=== PATIENT | male | born 1945 | race Caucasian/White ===

== ENCOUNTER → 2017-08-23 | Outpatient (CLI) | payer MEDICARE ==
[~2017-08-23] MED LIST: ALDACTONE25 MG PO; CELEBREX 200 M200 M1 PO; CENTRUM SILVER1 EAC4 PO; FISH OIL 1,001000 M2 PO; FOLIC ACID1 MG PO; LACTULOSE20 GM/30 M PO; LASIX 40 MG TAB40 M2 PO; LASIX 80 MG TAB80 MG PO; LIPITOR; LIPITOR 20 MG T20 M1 PO; MEDROL4 MG PO; PREDNISONE 20 M20 M1 PO; PREDNISONE 20 M20 MG PO; PROBENECID500 MG PO; PROTONIX40 M4 PO; VANCOMYCIN1.25 GM/21 IV; VITAMIN B-1100 M1 PO; VITAMIN D1000 UNI1 PO; XIFAXAN550 M1 PO; XIFAXAN550 MG PO
[2017-08-23 12:08] LABS: ALBUMIN 3.9 g/dL (3.4-5.0); CALCIUM 9.6 mg/dL (8.5-10.1); CREATININE 1.7 mg/dL (0.6-1.3); PHOSPHORUS* 3.5 mg/dL (2.5-4.9); POTASSIUM 5.4 mmol/L (3.5-5.1)
[2017-08-23 21:06] LABS: eGFR IF AFRICAN AMERICAN 50 (>59)
[2017-08-24 11:11] LABS: PARATHYROID HORMONE 24 pg/mL (15-65)
== END ==
LOC: M.LAB 11:16
PROVIDERS: Internal Medicine Nephrology
DX: N18.3 Chronic kidney disease, stage 3 (moderate) (principal); K70.10 Alcoholic hepatitis without ascites

== ENCOUNTER → 2018-01-03 | Outpatient (CLI) | payer MEDICARE ==
[2018-01-03 12:07] LABS: ALBUMIN 3.9 g/dL (3.4-5.0); CALCIUM 10.3 mg/dL (8.5-10.1); CREATININE 1.6 mg/dL (0.6-1.3); PHOSPHORUS* 2.9 mg/dL (2.5-4.9); POTASSIUM 5.6 mmol/L (3.5-5.1)
[2018-01-03 22:08] LABS: eGFR IF AFRICAN AMERICAN 51 (>59)
[2018-01-04 15:11] LABS: PARATHYROID HORMONE 18 pg/mL (15-65)
== END ==
LOC: M.LAB 11:20
PROVIDERS: Internal Medicine Nephrology
DX: N18.3 Chronic kidney disease, stage 3 (moderate) (principal)

== ENCOUNTER → 2018-01-10 | Outpatient (CLI) | payer MEDICARE ==
[2018-01-10 11:51] LABS: CALCIUM 9.9 mg/dL (8.5-10.1); CREATININE 1.5 mg/dL (0.6-1.3); POTASSIUM 4.7 mmol/L (3.5-5.1)
== END ==
LOC: M.LAB 11:28
PROVIDERS: Internal Medicine Nephrology
DX: N18.3 Chronic kidney disease, stage 3 (moderate) (principal)

== ENCOUNTER → 2018-02-23 | Outpatient (CLI) | payer MEDICARE | LOC: M.ULTRA 10:08 | DX: K70.10 Alcoholic hepatitis without ascites (principal); K70.30 Alcoholic cirrhosis of liver without ascites; N18.3 Chronic kidney disease, stage 3 (moderate) ==

== ENCOUNTER → 2018-03-15 | Outpatient (CLI) | payer MEDICARE ==
[2018-03-15 10:32] LABS: ABSOLUTE BASOPHILS 0.1 thou/uL (0.0-0.2); ABSOLUTE EOSINOPHILS 0.4 thou/uL (0.0-0.7); ABSOLUTE LYMPHOCYTES 1.4 thou/uL (0.8-5.3); ABSOLUTE MONOCYTES 0.7 thou/uL (0.0-1.2); ABSOLUTE NEUTROPHILS 3.7 thou/uL (1.6-8.1); BASOPHILS 0.9 %; EOSINOPHILS 6.4 %; HEMATOCRIT 42.6 % (42.0-52.0); HEMOGLOBIN 14.2 gm/dL (14.0-18.0); LYMPHOCYTES 22.2 %; MCH 32.6 pg (26.0-34.0); MCHC 33.3 g/dL (28.0-37.0); MCV 97.9 fL (80.0-100.0); MONOCYTES 11.7 %; NUCLEATED RBCS 0 /100WBC; PLATELET COUNT* 163 thou/uL (150-400); POLYS 58.8 %; RBC 4.35 mil/uL (4.50-6.00); RDW-CV 13.7 % (10.5-14.5); WBC 6.2 thou/uL (4.0-11.0)
[2018-03-15 10:39] LABS: PROTIME 10.7 Seconds (9.20-11.50)
[2018-03-15 10:44] LABS: CALCIUM 9.2 mg/dL (8.5-10.1); CREATININE 1.8 mg/dL (0.6-1.3); POTASSIUM 5.1 mmol/L (3.5-5.1); TOTAL BILIRUBIN 0.7 mg/dL (<0.1-1.0); TOTAL PROTEIN 7.9 g/dL (6.4-8.2)
== END ==
LOC: M.LAB 10:13
PROVIDERS: Internal Medicine Gastroenterology
DX: K70.30 Alcoholic cirrhosis of liver without ascites (principal); K70.10 Alcoholic hepatitis without ascites; N18.3 Chronic kidney disease, stage 3 (moderate); Z79.899 Other long term (current) drug therapy

== ENCOUNTER → 2018-05-09 | Outpatient (CLI) | payer MEDICARE ==
[2018-05-09 09:48] LABS: ALBUMIN 3.7 g/dL (3.4-5.0); CALCIUM 9.3 mg/dL (8.5-10.1); CREATININE 1.3 mg/dL (0.6-1.3); PHOSPHORUS* 3.2 mg/dL (2.5-4.9); POTASSIUM 4.4 mmol/L (3.5-5.1)
== END ==
LOC: M.LAB 09:15
PROVIDERS: Internal Medicine Gastroenterology
DX: K74.60 Unspecified cirrhosis of liver (principal); N28.9 Disorder of kidney and ureter, unspecified

== ENCOUNTER → 2018-08-18 | Outpatient (CLI) | payer MEDICARE ==
[2018-08-18 09:49] LABS: ALBUMIN 3.6 g/dL (3.4-5.0); CALCIUM 9.4 mg/dL (8.5-10.1); CREATININE 1.4 mg/dL (0.6-1.3); POTASSIUM 4.8 mmol/L (3.5-5.1)
== END ==
LOC: M.LAB 09:05
PROVIDERS: Internal Medicine Nephrology
DX: N18.3 Chronic kidney disease, stage 3 (moderate) (principal)

== ENCOUNTER → 2018-08-22 | Outpatient (CLI) | payer MEDICARE ==
[2018-08-22 12:38] LABS: CALCIUM 9.7 mg/dL (8.5-10.1); CREATININE 1.4 mg/dL (0.6-1.3); PHOSPHORUS* 3.4 mg/dL (2.5-4.9)
== END ==
LOC: M.LAB 11:43
PROVIDERS: Internal Medicine Nephrology
DX: N18.3 Chronic kidney disease, stage 3 (moderate) (principal)